=== PATIENT | male | born 1935 | race Caucasian/White ===

== ENCOUNTER → 2016-07-28 | Outpatient (CLI) | payer OTHER ==
[~2016-07-28] MED LIST: ALFA250T PO; ARGI500C2 PO; ASCO10004 PO; DIAZ5TAB PO; FERR325T20 PO; FURO20TA3 PO; LECI1200 PO; MULT-478 PO; None per pt.; OXYC-229 PO; OXYC1TAB8 PO; OXYC5CAP4 PO; POTA20TA6 PO; SENN1TAB5 PO; VITA100022 PO; VITA1TAB19 PO
== END | disposition home or self-care (01) ==
LOC: CFH 13:29
PROVIDERS: ATTEND Registered Nurse Registered Nurse First Assistant
DX: M51.36 Other intervertebral disc degeneration, lumbar region (principal); M48.05 Spinal stenosis, thoracolumbar region; M48.06 Spinal stenosis, lumbar region; M51.16 Intervertebral disc disorders with radiculopathy, lumbar region; Z98.890 Other specified postprocedural states
CPT/HCPCS: 72131

== ENCOUNTER → 2016-08-21 | Outpatient (CLI) | payer OTHER ==
[2016-08-21 11:34] LABS: PATH.CAST-FLAG NOT PRESENT; SPERM-FLAG NOT PRESENT; SRC-FLAG NOT PRESENT; XTAL-FLAG NOT PRESENT; YLC-FLAG NOT PRESENT
[2016-08-21 11:39] LABS: BLOOD UREA NITROGEN 29 mg/dL (7-18)
== END | disposition home or self-care (01) ==
LOC: STAR 10:01
PROVIDERS: ATTEND Neurological Surgery
DX: Z01.818 Encounter for other preprocedural examination (principal); M48.00 Spinal stenosis, site unspecified; M47.896 Other spondylosis, lumbar region
CPT/HCPCS: 36415; 71020; 80048; 81001; 85025; 85610; 85730; 87077; 87086; 87186; 93005

== ENCOUNTER 2016-09-04 05:23 | Inpatient (IN) | payer OTHER ==
[~2016-09-04] VITALS: Ht 177.8 cm; Wt 89.4 kg
[2016-09-04] MEDS ORDERED: LACTATED RINGERS 1,000 ML IV SCH (06:18)
[2016-09-04 06:19] VITALS: BP 159/76
[2016-09-04] MEDS ORDERED: [UNRECOGNIZED DRUG - CODE] PO (06:24)
[2016-09-04] MEDS ORDERED: COLE1TAB2 PO (06:24)
[2016-09-04] MEDS ORDERED: FENTANYL PF 250 MCG/5ML ONE (06:44)
[2016-09-04] MEDS ORDERED: METOCLOPRAMIDE 5 MG/ML, 2ML IV PRN (07:30)
[2016-09-04] MEDS ORDERED: hydrALAzine 20 MG/ML, 1ML IV PRN (07:30)
[2016-09-04] MEDS ORDERED: FENTANYL PF 100 MCG/2ML IV PRN (07:30)
[2016-09-04] MEDS ORDERED: ALBUTEROL SULFATE 2.5 MG/3 ML NPPB PRN (07:30)
[2016-09-04] MEDS ORDERED: PROMETHAZINE 25 MG/ML, 1ML IV PRN (07:30)
[2016-09-04] MEDS ORDERED: ONDANSETRON 2MG/ML, 2ML IVPush PRN (07:30)
[2016-09-04] MEDS ORDERED: MEPERIDINE/PF 25MG/0.5ML IVPush PRN (07:30)
[2016-09-04] MEDS ORDERED: LABETALOL 5MG/ML, 20ML IV PRN (07:30)
[2016-09-04] MEDS ORDERED: ACETAMINOPHEN 325 MG TABLET PO PRN (07:30)
[2016-09-04] MEDS ORDERED: OXYcodone 5 MG/5 ML ORAL.SOL UDC PO PRN (07:30)
[2016-09-04] MEDS ORDERED: ROCURONIUM 10 MG/ML ONE (07:34)
[2016-09-04] MEDS ORDERED: GLYCOPYRROLATE 0.2MG/1ML ONE (07:34)
[2016-09-04] MEDS ORDERED: CEFAZOLIN 1,000 MG ONE (07:34)
[2016-09-04] MEDS ORDERED: NEOSTIGMINE 1 MG/ML, 10ML ONE (07:34)
[2016-09-04] MEDS ORDERED: PROPOFOL 10 MG/ML, 20ML ONE (07:34)
[2016-09-04] MEDS ORDERED: BUPIVACAINE/PF-EPI 0.5% 1:200K INFIL ONE ×2 (08:02)
[2016-09-04] MEDS ORDERED: THROMBIN 5,000 UNIT VIAL TP ONE (08:03)
[2016-09-04] MEDS ORDERED: BACITRACIN 50,000 UNIT IRRIG ONE (08:03)
[2016-09-04] MEDS ORDERED: HYDROmorphone 2 MG/ML, 1ML ONE (10:52)
[2016-09-04] MEDS ORDERED: ACETAMINOPHEN 650 MG/20.3 ML UDC ONE (10:52)
[2016-09-04] MEDS ORDERED: OXYcodone 5 MG/5 ML ORAL.SOL UDC ONE (10:52)
[2016-09-04] MEDS: HYDROmorphone 1 MG/ML, 1ML IV PRN ×3 (10:59→11:21)
[2016-09-04] MEDS ORDERED: HYDROmorphone PCA 30 MG/30 ML ONE (11:33)
[2016-09-04] MEDS ORDERED: HYDROmorphone PCA 30 MG/30 ML IV PRN ×2 (12:00→14:30)
[2016-09-04 14:20] VITALS: BP 175/85
[2016-09-04] MEDS ORDERED: DIPHENHYDRAMINE 50 MG/ML, 1ML IVPush PRN ×2 (14:30)
[2016-09-04] MEDS ORDERED: MAGNESIUM HYDROXIDE 8%, 30ML UDC PO PRN (14:30)
[2016-09-04] MEDS ORDERED: TIZANIDINE 4MG TABLET PO PRN (14:30)
[2016-09-04] MEDS ORDERED: HYDROcodone/APAP 5/325 TABLET PO PRN (14:30)
[2016-09-04] MEDS ORDERED: DIAZEPAM 5 MG TABLET PO PRN (14:30)
[2016-09-04] MEDS ORDERED: MEPERIDINE/PF 100 MG/ML IM PRN (14:30)
[2016-09-04] MEDS ORDERED: BISACODYL 10 MG SUPP PR PRN (14:30)
[2016-09-04] MEDS ORDERED: ONDANSETRON 2MG/ML, 2ML IV PRN (14:30)
[2016-09-04] MEDS ORDERED: morphine SULFATE 10 MG/ML, 1ML IV PRN (14:30)
[2016-09-04] MEDS: CEFAZOLIN PMX 1GM/50ML 50 ML IVPB SCH ×2 (14:47→22:17)
[2016-09-04] MEDS: NS + 20MEQ KCL 1,000 ML IV SCH (16:20)
[2016-09-04 20:20] VITALS: BP 150/79
[2016-09-04] MEDS: COLESTIPOL 1 GM TABLET PO SCH (22:17)
[2016-09-05 00:18] VITALS: BP 168/64
[2016-09-05] MEDS: NS + 20MEQ KCL 1,000 ML IV SCH ×3 (03:11→22:00)
[2016-09-05 05:10] VITALS: BP 182/90
[2016-09-05 05:40] LABS: BLOOD UREA NITROGEN 24 mg/dL (7-18)
[2016-09-05 06:36] VITALS: BP 136/72
[2016-09-05] MEDS ORDERED: TIZA2TAB PO (09:04)
[2016-09-05] MEDS ORDERED: OXYC1TAB7 PO (09:04)
[2016-09-05] MEDS: SENNA/DOCUSATE TABLET PO SCH (10:07)
[2016-09-05] MEDS: OXYcodone/APAP 5/325MG TABLET PO PRN ×3 (10:12→21:44)
[2016-09-05 15:16] VITALS: BP 126/83
[2016-09-05 19:33] VITALS: BP 144/65
[2016-09-05] MEDS: COLESTIPOL 1 GM TABLET PO SCH (21:00)
[2016-09-06] MEDS: OXYcodone/APAP 5/325MG TABLET PO PRN ×4 (01:33→14:30)
[2016-09-06 01:38] VITALS: BP 169/63
[2016-09-06 06:47] VITALS: BP 125/65
[2016-09-06] MEDS: NS + 20MEQ KCL 1,000 ML IV SCH ×2 (08:00→18:00)
[2016-09-06] MEDS: SENNA/DOCUSATE TABLET PO SCH (10:26)
[2016-09-06] MEDS ORDERED: BISACODYL 10 MG SUPP PR ONE (12:00)
[2016-09-06 12:07] VITALS: BP 116/66
[2016-09-06 18:39] VITALS: BP 123/70
[2016-09-06] MEDS: COLESTIPOL 1 GM TABLET PO SCH (21:31)
[2016-09-07 01:06] VITALS: BP 173/75
[2016-09-07] MEDS: NS + 20MEQ KCL 1,000 ML IV SCH (04:00)
[2016-09-07 08:30] VITALS: BP 165/65
[2016-09-07] MEDS: SENNA/DOCUSATE TABLET PO SCH (09:00)
[2016-09-07] MEDS ORDERED: TRAM-28 PO (09:53)
== END 2016-09-07 10:20 | disposition home or self-care (01) | DRG 519 ==
LOC: OUT 05:23 → 4NOR 12:30 → OUT 12:47 → 4NOR 12:47
PROVIDERS: ADMIT Neurological Surgery; ATTEND Neurological Surgery
PROC: 0SP304Z Removal of Internal Fixation Device from Lumbosacral Joint, Open Approach (ICD-10-PCS; 2016-09-04)
PROC: 00UT07Z Supplement Spinal Meninges with Autologous Tissue Substitute, Open Approach (ICD-10-PCS; 2016-09-04)
PROC: 00UT0JZ Supplement Spinal Meninges with Synthetic Substitute, Open Approach (ICD-10-PCS; 2016-09-04)
PROC: 01NB0ZZ Release Lumbar Nerve, Open Approach (ICD-10-PCS; principal; 2016-09-04 07:30)
DX: M48.06 Spinal stenosis, lumbar region (principal); G96.11 Dural tear; Z98.1 Arthrodesis status; I10 Essential (primary) hypertension; F17.210 Nicotine dependence, cigarettes, uncomplicated; M51.36 Other intervertebral disc degeneration, lumbar region
CPT/HCPCS: 36415; 72100; 80048; 85025; 95938; 95941; J0690; J1170; J2704; J2710; J3010; J3370; J3480; J3490; C1781; J7120

== ENCOUNTER 2018-02-04 15:19 | Emergency (ER) | payer OTHER ==
[~2018-02-04 15:19] MED LIST changes: +COLE1TAB2 PO; +FERR325T18 PO; -FERR325T20 PO; +LISI5TAB7 PO; -OXYC-229 PO; +OXYC-307 PO; +OXYC1TAB7 PO; +OXYC5CAP2 PO; -OXYC5CAP4 PO; +SENN-52 PO; -SENN1TAB5 PO; +TIZA2TAB PO; +TRAM-47 PO; +[UNRECOGNIZED DRUG - CODE] PO
== END 2018-02-04 15:47 | disposition left against medical advice (07) ==
LOC: ED 15:41
DX: K59.00 Constipation, unspecified (principal); Z53.21 Procedure and treatment not carried out due to patient leaving prior to being seen by health care provider

== ENCOUNTER 2018-10-07 13:09 | Emergency (ER) | payer MEDICARE ==
[~2018-10-07] VITALS: Ht 177.8 cm; Wt 65.0 kg
[~2018-10-07 13:09] MED LIST changes: +ANAS1TAB PO; +CEFD300C37 PO; +LEVO50TA5 PO; +LEVO75TA PO; +MIRA25TA PO; +VANC125C11 PO
[2018-10-07 13:35] LABS: BASOPHILS # (AUTO) 0.04 x10^3/uL (0-0.1); BASOPHILS % (AUTO) 1 % (0-1); EOSINOPHILS # (AUTO) 0.06 x10^3/uL (0-0.4); EOSINOPHILS % (AUTO) 2 % (1-7); LYMPHOCYTES # (AUTO) 0.78 x10^3/uL (1-3.4); LYMPHOCYTES % (AUTO) 19 % (22-44); MD NO; MEAN CORPUSCULAR HGB CONC 32.3 g/dL (33.2-36.2); MEAN CORPUSCULAR VOLUME 102.2 fL (81-97); MEAN PLATELET VOLUME 6.7 fL (7.4-10.4); MONOCYTES # (AUTO) 0.45 x10^3/uL (0.2-0.8); MONOCYTES % (AUTO) 11 % (2-9); NEUTROPHILS # (AUTO) 2.71 x10^3/uL (1.8-6.8); NEUTROPHILS % (AUTO) 67 % (42-75); PLATELET COUNT 335 x10^3/uL (130-400); RED BLOOD COUNT 2.44 x10^6/uL (4.38-5.82); RED CELL DISTRIBUTION WIDTH 16.8 % (9.4-14.8)
[2018-10-07 13:42] LABS: ALBUMIN 3.6 g/dL (3.4-5.0); ANION GAP 8 mmol/L (5-15); CALCIUM 10.1 mg/dL (8.5-10.1); CHLORIDE 101 mmol/L (98-107); CREATININE 3.06 mg/dL (0.7-1.3)
[2018-10-07 13:45] LABS: TROPONIN I < 0.015 ng/mL (0.000-0.045)
--- NOTE | 2018-10-07 13:45 | NUR ---
CONTACT WITH PT, 82 YR OLD MALE HERE WITH C/O "HE HAS HAD 6 DIFFERENT DIARRHEAS TODAY. THE NURSE FROM HOME HEALTH AND CAME AND CHECKED HIM OUT AND THERE WERE SOME THINGS ON HER REPORT THAT ARE DIFFERENT AND SHE FELT HE NEEDED TO BE CHECKED OUT. HIS BREATHING IS DIFFERENT. HE IS TIRED. HE USUALLY TAKES A NAP IN THE AFTERNOON" PT ON MONITOR, SR. AUTO BP AND PULSE OX IN PLACE. SWETHA AT [facility].
--- NOTE | 2018-10-07 13:53 | NUR ---
PT HAS MORROW CATH IN PLACE. PLACED ? September.
--- NOTE | 2018-10-07 13:59 | NUR ---
DR MESA AT BEDSIDE TO CULLEN PT
[2018-10-07] MEDS ORDERED: SODIUM CHLORIDE 0.9% 1,000 ML IV ONE (14:30)
--- NOTE | 2018-10-07 14:38 | NUR ---
IV STARTED, LAB DRAWN. PT AND PTS UPDATED ON POC. KELECHI PAWS WARMER IN PLACE FOR PT COMFORT. NO OTHER NEEDS EXPRESSED AT THIS TIME.
--- NOTE | 2018-10-07 14:58 | NUR ---
DR MESA AT BEDSIDE TO RE-EVAL PT.
[2018-10-07] MEDS ORDERED: VANCOMYCIN 50 MG/ML ORAL SUSP PO ONE (15:30)
--- NOTE | 2018-10-07 15:44 | NUR ---
MEDICATION REQUESTED FROM PHARMACY.
--- NOTE | 2018-10-07 15:59 | NUR ---
PT ASKING TO SIT ON SIDE OF GURNEY, R/T "IT HURTS TO LAY IN BED SO LONG" PT ASKING FOR MILK SHAKE, REQUESTED FROM DIETARY. PT AND PTS AWARE OF WAITING FOR BLOOD TO BE AVAILABLE. NO OTHER NEEDS EXPRESSED AT THIS TIME.
--- NOTE | 2018-10-07 16:50 | NUR ---
PT ASSISTED TO RECLINER CHAIR FOR COMFORT. CONT SR PER MONITOR. PTS AT BEDSIDE. CALL TO BLOOD BANK TO CHECK ON BLOOD, NEED ORDER FOR PACKED CELLS/TRANSFUSION.
--- NOTE | 2018-10-07 17:26 | NUR ---
PER DR ROSALES, URINE SPECIMAN NOT NEEDED.
--- NOTE | 2018-10-07 17:35 | NUR ---
BLOOD REQUESTED FROM BLOOD BANK
[2018-10-07 17:47] VITALS: BP 138/57
--- NOTE | 2018-10-07 17:52 | NUR ---
BLOOD TRANSFUSION STARTED. PT HAS PO FLUIDS AT BEDSIDE. PT SITTING ON RECLINER CHAIR. NO NEEDS EXPRESSED AT THIS TIME.
[2018-10-07 18:12] VITALS: BP 140/58
[2018-10-07 18:30] VITALS: BP 132/55
--- NOTE | 2018-10-07 18:31 | NUR ---
NO S/S OF TRANSFUSION REACTION NOTED. PT CONSENT FOR BLOOD PRODUCTS SIGNED PRIOR TO BLOOD ADMINISTRATION.
--- NOTE | 2018-10-07 19:05 | NUR ---
REPORT RECEIVED FROM KLAUDIA MARIE.
--- NOTE | 2018-10-07 19:06 | NUR ---
REPORT TO CHAIM MARIE. BLOOD INFUSING WITHOUT S/S OF REACTION.
[2018-10-07 19:56] VITALS: BP 139/57
--- NOTE | 2018-10-07 19:57 | NUR ---
BLOOD TRANSFUSION IS DONE AT THIS TIME. PT DENIES ANY REACTIONS. VSS. PT'S AOX4. RESPS EVEN AND UNLABORED.
[2018-10-07 20:29] VITALS: BP 122/57
== END 2018-10-07 20:31 | disposition home or self-care (01) ==
LOC: ED 16:57
DX: A04.72 Enterocolitis due to Clostridium difficile, not specified as recurrent (principal); K92.2 Gastrointestinal hemorrhage, unspecified; E86.0 Dehydration; R19.7 Diarrhea, unspecified; D64.9 Anemia, unspecified; E03.9 Hypothyroidism, unspecified; I10 Essential (primary) hypertension
CPT/HCPCS: 36415; 36430; 71045; 80048; 82040; 83880; 84484; 85025; 86850; 86900; 86923; 93005; 96360; 96361; 99285; J3370; J7030; P9016

== ENCOUNTER 2018-10-26 11:40 | Inpatient (IN) | payer MEDICARE ==
[~2018-10-26] VITALS: Ht 175.3 cm; Wt 70.9 kg
[2018-11-01 14:05] VITALS: BP 125/60
== END 2018-11-01 15:24 | disposition home health service (06) | DRG 377 ==
LOC: ED 13:38 → EDIP 16:09 → 3NE 17:27 → 4WST 10-27 13:43 → DCLOUNGE 11-01 15:10
PROVIDERS: ADMIT Hospitalist; ATTEND Hospitalist
PROC: 0T9B70Z Drainage of Bladder with Drainage Device, Via Natural or Artificial Opening (ICD-10-PCS; 2018-10-26)
PROC: 30233N1 Transfusion of Nonautologous Red Blood Cells into Peripheral Vein, Percutaneous Approach (ICD-10-PCS; 2018-10-27)
PROC: 0DB68ZX Excision of Stomach, Via Natural or Artificial Opening Endoscopic, Diagnostic (ICD-10-PCS; principal; 2018-10-28)
PROC: 0DJD8ZZ Inspection of Lower Intestinal Tract, Via Natural or Artificial Opening Endoscopic (ICD-10-PCS; 2018-10-28)
DX: K25.4 Chronic or unspecified gastric ulcer with hemorrhage (principal); G93.41 Metabolic encephalopathy; A04.72 Enterocolitis due to Clostridium difficile, not specified as recurrent; E87.1 Hypo-osmolality and hyponatremia; I45.2 Bifascicular block; J98.11 Atelectasis; B96.20 Unspecified Escherichia coli [E. coli] as the cause of diseases classified elsewhere; D53.9 Nutritional anemia, unspecified; E03.9 Hypothyroidism, unspecified; E86.0 Dehydration; F17.200 Nicotine dependence, unspecified, uncomplicated; F41.9 Anxiety disorder, unspecified; F01.50 Vascular dementia, unspecified severity, without behavioral disturbance, psychotic disturbance, mood disturbance, and anxiety; N31.9 Neuromuscular dysfunction of bladder, unspecified; I35.8 Other nonrheumatic aortic valve disorders; I12.9 Hypertensive chronic kidney disease with stage 1 through stage 4 chronic kidney disease, or unspecified chronic kidney disease; N18.3 Chronic kidney disease, stage 3 (moderate); Z66 Do not resuscitate; Z86.19 Personal history of other infectious and parasitic diseases; Z86.73 Personal history of transient ischemic attack (TIA), and cerebral infarction without residual deficits; Z90.49 Acquired absence of other specified parts of digestive tract; Z98.49 Cataract extraction status, unspecified eye; Z87.440 Personal history of urinary (tract) infections
CPT/HCPCS: 36415; 36430; 70450; 70553; 71045; 80048; 80053; 80061; 80307; 81001; 82140; 82272; 82378; 82607; 82728; 82962; 83540; 83550; 83605; 83735; 84100; 84145; 84439; 84443; 84484; 85014; 85018; 85025; 85610; 86850; 86900; 86923; 87040; 87046; 87086; 87106; 87324; 87427; 88305; 88342; 93005; 93308; 93321; 93325; 96360; 99152; 99153; A9585; G0378; J1644; J2250; J3010; J3370; C9113; J1200; J1630; J2060; J3475; J7030; J7040; P9016

== ENCOUNTER 2018-11-07 08:42 | Emergency (ER) | payer MEDICARE ==
[~2018-11-07] VITALS: Ht 175.3 cm; Wt 61.2 kg
[~2018-11-07 08:42] MED LIST changes: +FERR-51 PO; +PANT20TA3 PO
[2018-11-07] MEDS ORDERED: MORPHINE SULFATE 4 MG/ML, 1ML IVPush PRN (09:30)
[2018-11-07] MEDS ORDERED: ONDANSETRON 2MG/ML, 2ML IVPush ONE (09:30)
[2018-11-07] MEDS ORDERED: SODIUM CHLORIDE FLUSH 10ML SYR IVF ONE (09:30)
[2018-11-07 10:09] LABS: CLOSTRIDIUM DIFFICILE ANTIGEN NEGATIVE; CLOSTRIDIUM DIFFICILE TOXIN NEGATIVE (Negative)
[2018-11-07 10:23] LABS: BASOPHILS # (AUTO) 0.02 x10^3/uL (0-0.1); BASOPHILS % (AUTO) 0 % (0-1); EOSINOPHILS # (AUTO) 0.15 x10^3/uL (0-0.4); EOSINOPHILS % (AUTO) 2 % (1-7); LYMPHOCYTES # (AUTO) 0.43 x10^3/uL (1-3.4); LYMPHOCYTES % (AUTO) 5 % (22-44); MD NO; MEAN CORPUSCULAR HEMOGLOBIN 31.8 pg (27.5-34.5); MEAN CORPUSCULAR HGB CONC 32.8 g/dL (33.2-36.2); MEAN PLATELET VOLUME 7.3 fL (7.4-10.4); MONOCYTES # (AUTO) 0.53 x10^3/uL (0.2-0.8); MONOCYTES % (AUTO) 7 % (2-9); NEUTROPHILS # (AUTO) 6.85 x10^3/uL (1.8-6.8); NEUTROPHILS % (AUTO) 86 % (42-75); PLATELET COUNT 382 x10^3/uL (130-400); RED BLOOD COUNT 2.78 x10^6/uL (4.38-5.82); RED CELL DISTRIBUTION WIDTH 16.6 % (9.4-14.8)
[2018-11-07 10:42] LABS: ALBUMIN 3.3 g/dL (3.4-5.0); ANION GAP 10 mmol/L (5-15); CALCIUM 9.6 mg/dL (8.5-10.1); CHLORIDE 103 mmol/L (98-107)
[2018-11-07] MEDS ORDERED: MORPHINE SULFATE 4 MG/ML, 1ML ONE (10:44)
[2018-11-07] MEDS ORDERED: ONDANSETRON 2MG/ML, 2ML ONE (10:44)
[2018-11-07 10:47] LABS: ALANINE AMINOTRANSFERASE 17 U/L (12-78); ALKALINE PHOSPHATASE 58 U/L (45-117); BILIRUBIN,TOTAL 0.4 mg/dL (0.2-1.0); CREATININE 1.99 mg/dL (0.7-1.3); TOTAL PROTEIN 7.7 g/dL (6.4-8.2)
--- NOTE | 2018-11-07 10:54 | NUR ---
PT HAS CO DIARRHEA SINCE THIS AM AND PAIN W URINATION. DENIES NAUSEA, PT HAS MORROW THAT REPLACED LAST FOR URINARY RETENTION FOR PROSTATE PROBLEM. HX OF CDIFF. PT MEDICATED PER ORDERS, BLANKETS GIVEN. PT RESTING COMFORTABLE. OXYGEN APPLIED AFTER MORPHINE GIVEN, VS STABLE.
[2018-11-07 11:38] LABS: MICROSCOPIC AUTO
[2018-11-07 12:08] LABS: CULTURE INDICATED? YES
[2018-11-07] MEDS ORDERED: CEFTRIAXONE PMX 1GM/50ML 50 ML ONE (12:14)
--- NOTE | 2018-11-07 12:30 | NUR ---
PT VOIDED 400. MORROW BAG EMPTIED
--- NOTE | 2018-11-07 12:59 | NUR ---
SPOKE WITH PATIENT AND AT LENGTH. PT REFUSED TO BE ADMITTED. EXPLAINED THE REASON WHY AND DISCUSSED PLAN OF CARE. PT BECAME VERBALLY ABUSE TO THIS RN. EXPLAINED THAT WE ARE HERE TO HELP. PT CONTINUES TO STATE, "YOU PEOPLE DONT HELP ME". AGREES TO TAKE PATIENT HOME. INCREASE EMOTIONAL SUPPORT GIVEN TO PATIENT AND
[2018-11-07] MEDS ORDERED: CEFTRIAXONE PMX 1GM/50ML 50 ML IV ONE (13:00)
[2018-11-07 13:28] VITALS: BP 140/85
--- NOTE | 2018-11-07 13:28 | NUR ---
Patient/Caregiver given discharge instructions and they have confirmed that they understand the instructions. Patient ambulatory with steady gait.
== END 2018-11-07 13:36 | disposition home or self-care (01) ==
LOC: ED 11:26
DX: N30.01 Acute cystitis with hematuria (principal); I12.9 Hypertensive chronic kidney disease with stage 1 through stage 4 chronic kidney disease, or unspecified chronic kidney disease; N18.3 Chronic kidney disease, stage 3 (moderate); R19.7 Diarrhea, unspecified
CPT/HCPCS: 36415; 74022; 74176; 80053; 81001; 83605; 85025; 87040; 87077; 87086; 87324; 89055; 93005; 96374; 96375; 99284; J0696; J2270; J2405; 87186

== ENCOUNTER 2018-11-16 08:43 | Day surgery (SDC) | payer MEDICARE ==
[~2018-11-16] VITALS: Ht 172.7 cm; Wt 58.7 kg
[~2018-11-16 08:43] MED LIST changes: -TIZA2TAB PO; +TIZA2TAB2 PO
[2018-11-16 09:22] VITALS: BP 102/53
[2018-11-16] MEDS ORDERED: LACTATED RINGERS 1,000 ML IV SCH (09:29)
[2018-11-16] MEDS ORDERED: LEVO25TA4 PO ×2 (09:54→09:59)
[2018-11-16] MEDS ORDERED: PANT20TA3 PO (09:59)
[2018-11-16] MEDS ORDERED: LIDOCAINE PF 2%, 5ML ONE (11:35)
[2018-11-16] MEDS ORDERED: PROPOFOL 10 MG/ML, 20ML ONE (11:35)
[2018-11-16] MEDS ORDERED: ACETAMINOPHEN 325 MG TABLET PO PRN (12:00)
[2018-11-16] MEDS ORDERED: FENTANYL PF 100 MCG/2ML IV PRN (12:00)
[2018-11-16] MEDS ORDERED: PROMETHAZINE 25 MG/ML, 1ML IV PRN (12:00)
[2018-11-16] MEDS ORDERED: ONDANSETRON 2MG/ML, 2ML IV PRN (12:00)
[2018-11-16] MEDS ORDERED: PROMETHAZINE 25 MG SUPP PR PRN (12:00)
[2018-11-16] MEDS ORDERED: ONDANSETRON ODT 8 MG PO PRN (12:00)
[2018-11-16] MEDS ORDERED: ALBUTEROL/IPRATROPIUM 2.5MG/0.5MG, 3 ML NPPB PRN (12:00)
== END 2018-11-16 13:20 | disposition home or self-care (01) ==
LOC: OUT 08:43
PROVIDERS: ATTEND Internal Medicine Geriatric Medicine
DX: K22.10 Ulcer of esophagus without bleeding (principal); K31.1 Adult hypertrophic pyloric stenosis; K22.8 Other specified diseases of esophagus; K31.89 Other diseases of stomach and duodenum; J44.9 Chronic obstructive pulmonary disease, unspecified; I12.9 Hypertensive chronic kidney disease with stage 1 through stage 4 chronic kidney disease, or unspecified chronic kidney disease; N18.9 Chronic kidney disease, unspecified; Z79.890 Hormone replacement therapy; Z79.899 Other long term (current) drug therapy; Z99.81 Dependence on supplemental oxygen; Z87.891 Personal history of nicotine dependence; Z90.49 Acquired absence of other specified parts of digestive tract; Z98.890 Other specified postprocedural states; Z80.41 Family history of malignant neoplasm of ovary; Z80.8 Family history of malignant neoplasm of other organs or systems
CPT/HCPCS: 43239; 43259; 88172; 88173; 88305; J2704; J7120

== ENCOUNTER 2018-11-18 21:59 | Emergency (ER) | payer MEDICARE ==
[~2018-11-18] VITALS: Ht 172.7 cm; Wt 61.3 kg
[~2018-11-18 21:59] MED LIST changes: +LEVO25TA4 PO
[2018-11-18 22:25] VITALS: BP 132/65
--- NOTE | 2018-11-18 22:28 | NUR ---
FIRST CONTACT WITH PT. PT HAD A MORROW REMOVED THIS MORNING, PT HAS URINATED MINIMAL AMOUNT TODAY AND IS HAVING BLADDER PAIN. BP/SPO2 MONITORS IN PLACE. CALL LIGHT WITHIN REACH.
[2018-11-18] MEDS ORDERED: MORPHINE SULFATE 4 MG/ML, 1ML ONE (22:59)
[2018-11-18] MEDS ORDERED: MORPHINE SULFATE 4 MG/ML, 1ML IVPush PRN (23:00)
[2018-11-18] MEDS ORDERED: HYDROmorphone 1 MG/ML, 1ML VIAL ONE (23:08)
--- NOTE | 2018-11-18 23:16 | NUR ---
PT MEDICATED PER EMAR FOR PAIN THEN HE LEFT WITH AMA.
[2018-11-18] MEDS ORDERED: HYDROmorphone 1 MG/ML, 1ML INJ IM ONE (23:30)
== END 2018-11-18 23:15 | disposition left against medical advice (07) ==
LOC: ED 23:05
DX: N40.1 Benign prostatic hyperplasia with lower urinary tract symptoms (principal); R33.8 Other retention of urine; I10 Essential (primary) hypertension; E03.9 Hypothyroidism, unspecified; F17.200 Nicotine dependence, unspecified, uncomplicated
CPT/HCPCS: 96372; 99283; J1170